=== PATIENT | female | born 1980 | race Caucasian/White ===

== ENCOUNTER 2016-11-23 06:34 | Emergency (ER) | payer BC, OTHER ==
[2016-11-23] MEDS ORDERED: Sodium Chloride 0.9% 1,000 ML IV ONE (06:35)
[2016-11-23] MEDS ORDERED: Ketorolac 30 MG/ML SDV IVPUSH ONE ×2 (06:36→07:42)
[2016-11-23] MEDS ORDERED: Ondansetron 4 MG/2 ML SDV IVPUSH ONE (06:36)
[2016-11-23] MEDS ORDERED: Morphine 2 MG/ML Syringe IVPUSH ONE (06:36)
--- NOTE | 2016-11-23 06:39 | EDM.PDOC ---
<Yimi Lopes - Last Filed: 11/23/16 07:11> ED HPI GENERAL MEDICAL PROBLEM - General Chief Complaint: Abdominal Pain Stated Complaint: ABDOMINIAL PAIN Time Seen by Provider: 11/23/16 06:37 Source of Information: Reports: Patient - History of Present Illness INITIAL COMMENTS - FREE TEXT/NARRATIVE: HISTORY AND PHYSICAL: History of present illness: []Patient presents with 8 out of 10 pain she is well-known to us She was working her shift here in the ER developing the pain she has been lying down for 20-30 minutes pain is increased in severity she states she has had pain similar in the past associated-like endometriosis type pain however she has not had this pain in years and now has had a hysterectomy Pain appears to be pelvic in nature no fever nausea vomiting chills sweats no vaginal discharge per patient or urine symptoms Review of systems: As per history of present illness and below otherwise all systems reviewed and negative. Past medical history: As per history of present illness and as reviewed below otherwise noncontributory. Surgical history: As per history of present illness and as reviewed below otherwise noncontributory. Social history: No reported history of drug or alcohol abuse. Family history: As per history of present illness and as reviewed below otherwise noncontributory. Physical exam: HEENT: Atraumatic, normocephalic, pupils reactive, negative for conjunctival pallor or scleral icterus, mucous membranes moist, throat clear, neck supple, nontender, trachea midline. Lungs: Clear to auscultation, breath sounds equal bilaterally, chest nontender. Heart: S1S2, regular, negative for clicks, rubs, or JVD. Abdomen: Soft, nondistended, nontender. Negative for masses or hepatosplenomegaly. Negative for costovertebral tenderness. Pelvis: Stable nontender. Genitourinary: Deferred. Rectal: Deferred. Extremities: Atraumatic, negative for cords or calf pain. Neurovascular unremarkable. Neuro: Awake, alert, oriented. Cranial nerves II through XII unremarkable. Cerebellum unremarkable. Motor and sensory unremarkable throughout. Exam nonfocal. Diagnostics: []CBC, CMP, UA, CRP CT abdomen pelvis with and without Therapeutics: []Toradol 30 mg IV Morphine 2 mg IV patient refused Zofran 8 mg IV Flomax 0.8 by mouth as symptoms appear consistent with bladder spasm as well Impression: []Pelvic pain Definitive disposition and diagnosis as appropriate pending reevaluation and review of above. Lower Abdominal Pain Score (Numeric/FACES): 10 - Related Data Allergies Allergy/AdvReac Type Severity Reaction Status Date / Time No Known Allergies Allergy Verified 11/23/16 06:48 Home Meds: Home Meds Estradiol 2 mg PO QPM 11/20/13 [History] Omeprazole Magnesium 20 mg PO BID 11/20/13 [History] Progesterone,Micronized [Prometrium] 100 mg PO QPM 11/20/13 [History] Calcium Carbonate [Calcium] 1 tab PO DAILY 02/07/15 [History] Multivitamin [Multivitamins] 1 tab PO DAILY 02/07/15 [History] Sucralfate 1 gram PO QID 02/07/15 [History] Past Medical History HEENT History: Reports: Other (See Below) Other HEENT History: hx fx rt orbital socket Cardiovascular History: Reports: None Respiratory History: Reports: None Gastrointestinal History: Reports: GERD Other Gastrointestinal History: hx gastric ulcer Genitourinary History: Reports: None 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 Musculoskeletal History: Reports: None Neurological History: Reports: Migraines Psychiatric History: Reports: None Endocrine/Metabolic History: Reports: None Hematologic History: Reports: None Immunologic History: Reports: None Oncologic (Cancer) History: Reports: None Dermatologic History: Reports: None - Infectious Disease History Infectious Disease History: Reports: Chicken Pox - Past Surgical History Female Surgical History: Reports: Hysterectomy, Other (See Below) Social & Family History - Family History Family Medical History: Noncontributory - Tobacco Use Smoking Status *Q: Current Some Day Smoker (10 years) Years of Tobacco use: 8 Packs/Tins Daily: 0.5 - Caffeine Use Caffeine Use: Reports: Coffee - Alcohol Use Days Per Week of Alcohol Use: 1 Number of Drinks Per Day: 1 Total Drinks Per Week: 1 - Recreational Drug Use Recreational Drug Use: No Drug Use in Last 12 Months: No Course - Vital Signs Last Recorded V/S: Last Vital Signs Temp 36.5 C 11/23/16 06:46 Pulse 63 11/23/16 06:46 Resp 16 11/23/16 06:46 BP 124/76 11/23/16 06:46 Pulse Ox 98 11/23/16 06:46 - Orders/Labs/Meds Orders: Active Orders 24 hr Category Date Time Status Abdomen Pelvis w wo Cont [CT] Stat Exams 11/23/16 07:10 Taken Tamsulosin [Flomax] Med 11/23/16 06:45 Active 0.8 mg PO PCBREAKFAST Medication Orders Tamsulosin HCl (Flomax) 0.8 mg PO PCBREAKFAST MARTY Last Admin: 11/23/16 06:44 Dose: 0.8 mg Labs: Laboratory Tests 11/23/16 11/23/16 11/23/16 Range/Units 06:35 06:35 07:25 WBC 9.55 (4.0-11.0) K/uL RBC 4.53 (4.30-5.90) M/uL Hgb 14.1 (12.0-16.0) g/dL Hct 40.3 (36.0-46.0) % MCV 89.0 (80.0-98.0) fL MCH 31.1 (27.0-32.0) pg MCHC 35.0 (31.0-37.0) g/dL RDW Std Deviation 41.3 (28.0-62.0) fl RDW Coeff of Blessing 13 (11.0-15.0) % Plt Count 221 (150-400) K/uL MPV 10.60 (7.40-12.00) fL Neut % (Auto) 48.1 (48.0-80.0) % Lymph % (Auto) 42.0 H (16.0-40.0) % Glynn % (Auto) 7.0 (0.0-15.0) % Eos % (Auto) 2.4 (0.0-7.0) % Baso % (Auto) 0.5 (0.0-1.5) % Neut # (Auto) 4.6 (1.4-5.7) K/uL Lymph # (Auto) 4.0 H (0.6-2.4) K/uL Glynn # (Auto) 0.7 (0.0-0.8) K/uL Eos # (Auto) 0.2 (0.0-0.7) K/uL Baso # (Auto) 0.1 (0.0-0.1) K/uL Nucleated RBC % 0.0 /100WBC Nucleated RBCs # 0 K/uL Sodium 140 (136-146) mmol/L Potassium 3.9 (3.5-5.1) mmol/L Chloride 106 (98-110) mmol/L Carbon Dioxide 27 (21-31) mmol/L BUN 11 (6.0-23.0) mg/dL Creatinine 0.9 (0.6-1.5) mg/dL Est Cr Clr Drug Dosing TNP Estimated GFR (MDRD) > 60.0 ml/min Glucose 74 (60-110) mg/dL Calcium 10.1 (8.8-10.8) mg/dL Total Bilirubin 0.2 (0.1-1.5) mg/dL AST 15 (5-40) IU/L ALT 13 (8-54) IU/L Alkaline Phosphatase 69 (40-150) C-Reactive Protein 0.03 (0.0-0.5) mg/dL Total Protein 7.7 (6.0-8.0) g/dL Albumin 4.5 (3.5-5.0) g/dL Globulin 3.2 (2.0-3.5) g/dL Albumin/Globulin Ratio 1.4 (1.3-2.8) Urine Color YELLOW Urine Appearance CLEAR Urine pH 7.0 (5.0-8.0) Ur Specific Hastings 1.010 (1.001-1.035) Urine Protein NEGATIVE (NEGATIVE) mg/dL Urine Glucose (UA) NEGATIVE (NEGATIVE) mg/dL Urine Ketones NEGATIVE (NEGATIVE) mg/dL Urine Occult Blood NEGATIVE (NEGATIVE) Urine Nitrite NEGATIVE (NEGATIVE) Urine Bilirubin NEGATIVE (NEGATIVE) Urine Urobilinogen 0.2 (<2.0) EU/dL Ur Leukocyte Esterase NEGATIVE (NEGATIVE) Urine RBC 0-1 (0-2/HPF) Urine WBC NONE SEEN (0-5/HPF) Ur Epithelial Cells OCCASIONAL (NONE-FEW) Urine Bacteria RARE (NEGATIVE) Meds: Medications Generic Name Dose Route Start Last Admin Trade Name Freq PRN Reason Stop Dose Admin Tamsulosin HCl 0.8 mg 11/23/16 06:45 11/23/16 06:44 Flomax PO 0.8 mg PCBREAKFAST MARTY Administration Discontinued Medications Generic Name Dose Route Start Last Admin Trade Name Freq PRN Reason Stop Dose Admin Sodium Chloride 1,000 mls @ 999 mls/hr 11/23/16 06:35 11/23/16 06:42 Normal Saline IV 11/23/16 07:35 999 mls/hr STAT ONE Administration Ketorolac Tromethamine 30 mg 11/23/16 06:36 11/23/16 06:43 Toradol IVPUSH 11/23/16 06:37 30 mg ONETIME ONE Administration Ketorolac Tromethamine 30 mg 11/23/16 07:42 11/23/16 07:51 Toradol IVPUSH 11/23/16 07:43 30 mg ONETIME ONE Administration Ketorolac Tromethamine Confirm 11/23/16 07:50 Toradol Administered 11/23/16 07:51 Dose 30 mg .ROUTE .STK-MED ONE Morphine Sulfate 2 mg 11/23/16 06:36 Morphine IVPUSH 11/23/16 06:37 ONETIME ONE Ondansetron HCl 8 mg 11/23/16 06:36 11/23/16 06:43 Zofran IVPUSH 11/23/16 06:37 Not Given ONETIME ONE Departure - Departure Disposition: Home, Self-Care 01 Clinical Impression: Pelvic pain - Discharge Information Referrals: PCP,None [Primary Care Provider] - Forms: ED Department Discharge Additional Instructions: The following information is given to patients seen in the emergency department who are being discharged to home. This information is to outline your options for follow-up care. We provide all patients seen in our emergency department with a follow-up referral. The need for follow-up, as well as the timing and circumstances, are variable depending upon the specifics of your emergency department visit. If you don't have a primary care physician on staff, we will provide you with a referral. We always advise you to contact your personal physician following an emergency department visit to inform them of the circumstance of the visit and for follow-up with them and/or the need for any referrals to a consulting specialist. The emergency department will also refer you to a specialist when appropriate. This referral assures that you have the opportunity for followup care with a specialist. All of these measure are taken in an effort to provide you with optimal care, which includes your followup. Under all circumstances we always encourage you to contact your private physician who remains a resource for coordinating your care. When calling for followup care, please make the office aware that this follow-up is from your recent emergency room visit. If for any reason you are refused follow-up, please contact the [facility] emergency department at and ask to speak to the emergency department charge nurse. [facility] Primary care- Internal Medicine and Family [address] [address] Please continue to monitor your symptoms and return to ER as needed and as discussed. Please follow-up with your provider in the next few days for further care and reevaluation. Please use [place] you have been prescribed via [employer] [facility] as needed. <Maria D Solis - Last Filed: 11/23/16 08:29> ED HPI GENERAL MEDICAL PROBLEM - History of Present Illness INITIAL COMMENTS - FREE TEXT/NARRATIVE: This is Dr. Solis dictating an addendum note as I assumed care of this patient at 7 AM. 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 She has a history of endometriosis and multiple laparoscopies as well as a total hysterectomy and says she has a lot of scar tissue as a result of that. She has had no issues with her bowels and no urinary complaints and note urinary or kidney stone history. She says the pain feels like her endometriosis pain and is localized in the left lower pelvic area. It does not radiate and is not associated with fever or flank pain or vomiting. The patient currently has received medication and does not want any narcotics at this time so I will re- dose her with Toradol as we await the UA results and the CT scan results. She is aware that the CBC and CMP are normal. Patient has no lower back pain or leg pain. We will proceed pending the results of the UA and CT scan. The patient is aware of CT scan results and would like pain medication to go home. I offered admission for pain management and further evaluation and she is deferring at this time. I advised her on reasons to return and will give her [place] via [employer] [facility] to try. She says that her [employer] physician has told her that even after the hysterectomy she may have episodes of pain due to the scar tissue. Impression: Left pelvic pain etiology unclear ED ROS GENERAL - Review of Systems Review Of Systems: ROS reveals no pertinent complaints other than HPI. ED EXAM, GENERAL - Physical Exam Exam: See Below (See dictation) Departure - Departure Time of Disposition: 08:25 Condition: Fair
[2016-11-23] MEDS ORDERED: Tamsulosin 0.4 MG Cap.ER PO SCH (06:45)
[2016-11-23 07:04] LABS: CHLORIDE,CL 106 mmol/L (98-110); SODIUM,NA 140 mmol/L (136-146)
[2016-11-23] MEDS ORDERED: Ketorolac 30 MG/ML SDV ONE (07:50)
[2016-11-23 09:00] VITALS: BP 112/70
[2016-11-23] MEDS ORDERED: Iopamidol 755 MG/ML 500 ML Multipack Bottle IVPUSH STA (11:43)
--- NOTE | 2016-11-25 13:37 | CT ---
EXAM DATE: 11/23/16 PATIENT'S AGE: 36 Patient: ALLISON BALLARD Facility: [place], [place] Site . Site : 1980 Study: CT Abdomen/Pelvis [id number]/30/2017 7:42:30 AM Ordering Physician: Doctor Grossman Final Report: HISTORY: Abdominal pain. TECHNIQUE: Initial noncontrast CT abdomen and pelvis followed by intravenous contrast enhanced CT of the abdomen and pelvis. 100 mL of Isovue-370 intravenous contrast administered. COMPARISON: CT 02/01/2015. FINDINGS: Sub cm low-density lesion within the right hepatic lobe on image #30 of series 301 is too small to characterize but unchanged and therefore more likely benign. There is no new or enlarged liver lesion. No intrahepatic or extrahepatic biliary ductal dilatation. Gallbladder is contracted. Spleen size within normal limits. The adrenal glands are normal. No focal pancreatic abnormality or peripancreatic inflammatory change. Symmetric nephrograms. No renal mass or hydronephrosis. No urinary calculus. Urinary bladder is not well distended and not well evaluated by CT. - The stomach and GE junction are not optimally distended and not optimally evaluated by CT but appear grossly unremarkable. There is no small bowel obstruction. The appendix is not seen and likely absent. No diverticulitis or definite colitis. Prior hysterectomy. There is no abdominal or pelvic fluid collection. No free air. No aortic aneurysm. Mesenteric and renal vasculature is patent. Pelvic calcifications are likely phleboliths. - No acute bony abnormality. - Minor subpleural atelectasis within the right lower lobe. No consolidation or pleural effusion. IMPRESSION: 1. No specific identified cause of the patient`s abdominal pain. 2. Prior appendectomy and hysterectomy. 3. No bowel obstruction, fluid collection or acute inflammatory change seen. 4. Stable sub cm low-density right hepatic lobe lesion which is too small to characterize but likely benign. Dictated by David Gonsales MD @ 11/23/2016 8:15:11 AM Dictated by: David Gonsales MD @ 11/23/2016 08:15:15 (Electronic Signature) Report Signed by Proxy. KYARA
== END 2016-11-23 08:45 | disposition home or self-care (01) ==
LOC: MW.ED 06:34
DX: R10.2 Pelvic and perineal pain (principal); K21.9 Gastro-esophageal reflux disease without esophagitis; F17.210 Nicotine dependence, cigarettes, uncomplicated; Z79.899 Other long term (current) drug therapy; Z90.710 Acquired absence of both cervix and uterus
CPT/HCPCS: 36415; 74178; 80053; 81001; 85025; 86140; 96361; 96374; 96376; 99284; A9270; J1885; J7040; Q9967; 99283

== ENCOUNTER 2020-04-17 13:16 | Emergency (ER) | payer BC, OTHER ==
--- NOTE | 2020-04-17 13:56 | EDM.PDOC ---
ED HPI GENERAL MEDICAL PROBLEM - General Chief Complaint: Upper Extremity Injury/Pain Stated Complaint: POSSIBLE BLOOD CLOT Time Seen by Provider: 04/17/20 13:21 Source of Information: Reports: Patient History Limitations: Reports: No Limitations - History of Present Illness INITIAL COMMENTS - FREE TEXT/NARRATIVE: Patient is a 39-year-old female with a history of DVT to right arm presents today for increased pain and swelling to the right arm. Patient states that she was on Eliquis has been switched to Xarelto today and took the pill this morning. Patient is notices more increased pain in his more swelling. Patient denies any shortness of breath chest pain fever chills or other complaints. right arm Pain Score (Numeric/FACES): 7 - Related Data Allergies Allergy/AdvReac Type Severity Reaction Status Date / Time No Known Allergies Allergy Verified 04/17/20 13:26 Home Meds: Home Meds Omeprazole Magnesium 20 mg PO BID PRN 11/20/13 [History] Progesterone,Micronized [Prometrium] 100 mg PO QPM 11/20/13 [History] estradioL [Estradiol] 2 mg PO QPM 11/20/13 [History] Calcium Carbonate [Calcium] 1 tab PO DAILY 02/07/15 [History] Multivitamin [Multivitamins] 1 tab PO DAILY 02/07/15 [History] Sucralfate 1 gram PO QID PRN 02/07/15 [History] Acetaminophen/HYDROcodone [[place] 325-5 MG] 1 tab PO Q6H PRN 5 Days #16 tablet 04/17/20 [Rx] Rivaroxaban [Xarelto] 04/17/20 [History] Past Medical History HEENT History: Reports: Other (See Below) Other HEENT History: hx fx rt orbital socket Cardiovascular History: Reports: None Respiratory History: Reports: None Gastrointestinal History: Reports: GERD Other Gastrointestinal History: hx gastric ulcer Genitourinary History: Reports: None 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 Musculoskeletal History: Reports: None Neurological History: Reports: Migraines Psychiatric History: Reports: None Endocrine/Metabolic History: Reports: None Hematologic History: Reports: None Immunologic History: Reports: None Oncologic (Cancer) History: Reports: None Dermatologic History: Reports: None - Infectious Disease History Infectious Disease History: Reports: Chicken Pox - Past Surgical History Head Surgeries/Procedures: Reports: None HEENT Surgical History: Reports: None GI Surgical History: Reports: Appendectomy Other GI Surgeries/Procedures: Multiple laprascopic surgeries Female Surgical History: Reports: Hysterectomy, Other (See Below) Other Female Surgeries/Procedures: hx of laparoscopy x4 for endometriosis Social & Family History - Family History Family Medical History: No Pertinent Family History - Tobacco Use Tobacco Use Status *Q: Current Every Day Tobacco User Years of Tobacco use: 15 Packs/Tins Daily: 0.5 - Caffeine Use Caffeine Use: Reports: Coffee - Recreational Drug Use Recreational Drug Use: No Review of Systems - Review of Systems Review Of Systems: See Below Constitutional: Reports: No Symptoms Eyes: Reports: No Symptoms Ears: Reports: No Symptoms Nose: Reports: No Symptoms Mouth/Throat: Reports: No Symptoms Respiratory: Reports: No Symptoms Cardiovascular: Reports: No Symptoms GI/Abdominal: Reports: No Symptoms Genitourinary: Reports: No Symptoms Musculoskeletal: Reports: Arm Pain Skin: Reports: No Symptoms Neurological: Reports: No Symptoms Psychiatric: Reports: No Symptoms ED EXAM, GENERAL - Physical Exam Exam: See Below Exam Limited By: No Limitations General Appearance: Alert, WD/WN, No Apparent Distress Nose: Normal Inspection Head: Atraumatic Neck: Normal Inspection, Supple, Non-Tender, Full Range of Motion Respiratory/Chest: No Respiratory Distress, Lungs Clear, Normal Breath Sounds, No Accessory Muscle Use, Chest Non-Tender Cardiovascular: Normal Peripheral Pulses, Regular Rate, Rhythm, No Edema, No Gallop, No JVD, No Murmur, No Rub Peripheral Pulses: 2+: Radial (L), Radial (R) GI/Abdominal: Normal Bowel Sounds, Soft, Non-Tender, No Organomegaly, No Distention, No Abnormal Bruit, No Mass Back Exam: Normal Inspection, Full Range of Motion, NT Extremities: Normal Inspection, Normal Range of Motion, No Pedal Edema, Normal Capillary Refill, Joint Swelling Neurological: Alert, Oriented, CN II-XII Intact, Normal Cognition, Normal Gait, Normal Reflexes, No Motor/Sensory Deficits Psychiatric: Normal Affect, Normal Mood Skin Exam: Warm, Dry, Intact, Normal Color, No Rash Course - Vital Signs Last Recorded V/S: Last Vital Signs Temp 97.6 F 04/17/20 13:23 Pulse 73 04/17/20 13:23 Resp 16 04/17/20 13:23 BP 123/84 04/17/20 13:23 Pulse Ox 98 04/17/20 13:23 - Orders/Labs/Meds Labs: Laboratory Tests 04/17/20 04/17/20 04/17/20 Range/Units 13:30 13:30 13:30 WBC 8.84 (4.0-11.0) K/uL RBC 4.67 (4.30-5.90) M/uL Hgb 14.8 (12.0-16.0) g/dL Hct 42.6 (36.0-46.0) % MCV 91.2 (80.0-98.0) fL MCH 31.7 (27.0-32.0) pg MCHC 34.7 (31.0-37.0) g/dL RDW Std Deviation 42.7 (28.0-62.0) fl RDW Coeff of Blessing 13 (11.0-15.0) % Plt Count 287 (150-400) K/uL MPV 10.50 (7.40-12.00) fL Neut % (Auto) 54.3 (48.0-80.0) % Lymph % (Auto) 36.5 (16.0-40.0) % Bonner % (Auto) 6.3 (0.0-15.0) % Eos % (Auto) 2.3 (0.0-7.0) % Baso % (Auto) 0.6 (0.0-1.5) % Neut # (Auto) 4.8 (1.4-5.7) K/uL Lymph # (Auto) 3.2 H (0.6-2.4) K/uL Bonner # (Auto) 0.6 (0.0-0.8) K/uL Eos # (Auto) 0.2 (0.0-0.7) K/uL Baso # (Auto) 0.1 (0.0-0.1) K/uL Nucleated RBC % 0.0 /100WBC Nucleated RBCs # 0 K/uL INR 1.11 APTT 35.4 H (18.6-31.3) SEC Sodium 140 (136-145) mmol/L Potassium 3.4 L (3.5-5.1) mmol/L Chloride 103 (98-107) mmol/L Carbon Dioxide 27.1 (21.0-32.0) mmol/L BUN 9 (7.0-18.0) mg/dL Creatinine 0.9 (0.6-1.0) mg/dL Est Cr Clr Drug Dosing 76.57 mL/min Estimated GFR (MDRD) > 60.0 ml/min Glucose 104 (74-106) mg/dL Calcium 9.6 (8.5-10.1) mg/dL Meds: Medications Discontinued Medications Generic Name Dose Route Start Last Admin Trade Name Scott PRN Reason Stop Dose Admin Iopamidol 100 ml 04/17/20 14:40 Isovue Multipack-370 (76%) IVPUSH 04/17/20 14:41 ONETIME STA Ketorolac Tromethamine 30 mg 04/17/20 14:20 04/17/20 15:13 Toradol IVPUSH 04/17/20 14:21 30 mg ONETIME ONE Administration - Re-Assessments/Exams Free Text/Narrative Re-Assessment/Exam: 04/17/20 16:16 CT venogram of DVT of the right extremity shows some clavian clot extending to the inferior portal internal jugular. Patient will be discharged home and we spoke to the vascular surgeon at [place] the patient can follow-up there. Patient continue her anticoagulation. Departure - Departure Time of Disposition: 16:17 Disposition: Home, Self-Care 01 Condition: Good Clinical Impression: Thrombosis of upper extremity - Discharge Information *PRESCRIPTION DRUG MONITORING PROGRAM REVIEWED*: Not Applicable *COPY OF PRESCRIPTION DRUG MONITORING REPORT IN PATIENT RONDA: Not Applicable Instructions: Venous Thromboembolism Prevention Referrals: PCP,None [Primary Care Provider] - Forms: ED Department Discharge Additional Instructions: The following information is given to patients seen in the emergency department who are being discharged to home. This information is to outline your options for follow-up care. We provide all patients seen in our emergency department with a follow-up referral. The need for follow-up, as well as the timing and circumstances, are variable depending upon the specifics of your emergency department visit. If you don't have a primary care physician on staff, we will provide you with a referral. We always advise you to contact your personal physician following an emergency department visit to inform them of the circumstance of the visit and for follow-up with them and/or the need for any referrals to a consulting specialist. The emergency department will also refer you to a specialist when appropriate. This referral assures that you have the opportunity for follow-up care with a specialist. All of these measure are taken in an effort to provide you with optimal care, which includes your follow-up. Under all circumstances we always encourage you to contact your private physician who remains a resource for coordinating your care. When calling for follow-up care, please make the office aware that this follow-up is from your recent emergency room visit. If for any reason you are refused follow-up, please contact the [facility] Emergency Department at and asked to speak to the emergency department charge nurse. Please follow up with your primary care physician. If you do not have a primary care physician, see below: [facility] [address] [place] [id number] My [facility] [address] [place] [address] Spoke with the vascular surgeon over [place]. They were happy to see you as a patient. Unclear if they would do any intervention. We recommend you continue taking your anticoagulation as well we will give you a copy of the images that were done here today. If you develop any increasing pain or firmness to the arm with decreased pulses to the arm please return to the ED immediately. Sepsis Event Note (ED) - Evaluation Sepsis Screening Result: No Definite Risk - Focused Exam Vital Signs: Vital Signs Temp Pulse Resp BP Pulse Ox 04/17/20 13:23 97.6 F 73 16 123/84 98 - Assessment/Plan Plan: Is a 39-year-old female presents today for right arm swelling. Patient had a previous diagnosed DVT of the right arm. Is currently anticoagulation. We spoke to vascular surgery at [facility] states this patient having increased pain and the clot is expanding they may need to do a thrombolysis di rected in the arm. Since patient is taking Eliquis they will not do the procedure until Friday. 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
[2020-04-17 14:08] LABS: BLOOD UREA NITROGEN,BUN 9 mg/dL (7.0-18.0); CARBON DIOXIDE,CO2 27.1 mmol/L (21.0-32.0); CHLORIDE,CL 103 mmol/L (98-107); GLUCOSE RANDOM 104 mg/dL (74-106); POTASSIUM,K 3.4 mmol/L (3.5-5.1); SODIUM,NA 140 mmol/L (136-145)
[2020-04-17] MEDS ORDERED: Ketorolac 30 MG/ML SDV IVPUSH ONE (14:20)
[2020-04-17] MEDS ORDERED: Iopamidol 755 MG/ML 500 ML Multipack Bottle IVPUSH STA (14:40)
--- NOTE | 2020-04-17 15:50 | US ---
INDICATION: Followup known DVT in the right upper extremity. COMPARISON: DVT ultrasound dated 10 April 2020. FINDINGS: A right upper extremity DVT ultrasound shows thrombus in the right subclavian, axillary, and basilic veins and extending into the lower portion of the right internal jugular vein. No other thrombus identified. IMPRESSION: DVT in the right subclavian and axillary veins extending into the lower portion of the right internal jugular vein is not significantly changed. Dictated by Juan Diego De Leon MD @ Apr 17 2020 3:45PM Signed by Dr. Juan Diego De Leon @ Apr 17 2020 3:49PM
--- NOTE | 2020-04-17 16:01 | CT ---
INDICATION: Right upper extremity DVT. COMPARISON: CT pulmonary angiogram dated 10 April 2020. TECHNIQUE: CT pulmonary angiogram with 100 cc of Isovue-[id number] given intravenously. FINDINGS: No pulmonary emboli. No aneurysmal dilatation or dissection of the thoracic aorta. No mediastinal or hilar adenopathy. No axillary adenopathy. The visualized portions of the lungs show no focal pulmonary opacities. No pneumothorax. No abnormalities identified in the visualized portions of the liver and spleen. IMPRESSION: No pulmonary emboli. No acute abnormalities of the chest identified. Please note that all CT scans at this facility use dose modulation, iterative reconstruction, and/or weight-based dosing when appropriate to reduce radiation dose to as low as reasonably achievable. Dictated by Juan Diego De Leon MD @ Apr 17 2020 3:50PM Signed by Dr. Juan Diego De Leon @ Apr 17 2020 3:58PM
[2020-04-17 18:11] VITALS: BP 99/65; PULSE 59
== END 2020-04-17 16:28 | disposition home or self-care (01) ==
LOC: MW.ED 13:16
DX: I82.B11 Acute embolism and thrombosis of right subclavian vein (principal); I82.C11 Acute embolism and thrombosis of right internal jugular vein; Z72.0 Tobacco use; Z79.899 Other long term (current) drug therapy
CPT/HCPCS: 36415; 71275; 80048; 85025; 85610; 85730; 93971; 96374; 99284; J1885; 99283

== ENCOUNTER 2021-01-29 21:38 | Emergency (ER) | payer BC ==
[2021-01-29] MEDS ORDERED: Ketorolac 60 MG/2 ML SDV IM ONE (21:40)
[2021-01-29] MEDS ORDERED: Lidocaine 5% 700 MG Patch TRDERM ONE (21:41)
[2021-01-30] MEDS ORDERED: Cyclobenzaprine 10 MG Tab PO ONE (00:06)
== END 2021-01-29 21:47 | disposition home or self-care (01) ==
LOC: MW.ED 21:38
DX: Z02.89 Encounter for other administrative examinations (principal)
CPT/HCPCS: 96372; 99281; A9270; J1885